=== PATIENT | male | born 1995 | race Caucasian/White ===

== ENCOUNTER 2021-05-02 17:03 | Emergency (ER) | payer OTHER ==
[~2021-05-02] VITALS: Ht 188 cm; Wt 104.3 kg
== END 2021-05-02 20:25 | disposition home or self-care (01) ==
LOC: ED 17:03
DX: S61.210A Laceration without foreign body of right index finger without damage to nail, initial encounter (principal); S61.212A Laceration without foreign body of right middle finger without damage to nail, initial encounter; S61.011A Laceration without foreign body of right thumb without damage to nail, initial encounter; Z23 Encounter for immunization; Z88.0 Allergy status to penicillin; Z91.041 Radiographic dye allergy status; W01.110A Fall on same level from slipping, tripping and stumbling with subsequent striking against sharp glass, initial encounter
CPT/HCPCS: 12005; 90471; 90715; 99282-25